=== PATIENT | male | born 1960 | race Caucasian/White ===

== ENCOUNTER 2022-05-09 12:08 | Inpatient (IN) ==
[2022-05-09] MEDS ORDERED: HYDROmorphone INJ 1 MG/ML SYRINGE IV STA ×2 (13:15→17:08)
[2022-05-09] MEDS ORDERED: ONDANSETRON INJ 2 MG/ML 2 ML VIAL IV STA (13:15)
--- NOTE | 2022-05-09 13:20 | Emergency Department Note ---
History of Present Illness General Chief complaint: Back Injury/Pain Stated complaint: PAIN AFTER BACK INJECTION Time Seen by Provider: 05/09/22 13:00 Source: patient Mode of arrival: ambulatory Limitations: no limitations History of Present Illness Maximum Pain Intensity: 9 This patient is a 62-year-old male who has ongoing back issues with herniated disc and is followed by Dr. Marrufo, comes in after having worsening of pain. He has seen Dr. Marrufo in the past and he opted to try to go nonoperatively. He has had 2 injections. He felt better after the first 1 but the second 1 he is gotten worse that this was about 2 weeks ago he cannot walk as he has severe pain when he tries to walk he cannot sleep because when he turns it hurts. No recent trauma he does have some numbness in his leg intermittently but that is been coming and going since before the injections. No fever chills he just completed a Medrol Dosepak and he is on tramadol which does not help. He has had no fever chills no fall. No history of back surgery. In the past, he wanted to try nonoperative methods first and now is willing to have surgery as he does not feel it is working and he is a hard time functioning at home. Home Medications Medication Instructions Recorded Confirmed Type methylprednisolone 4 mg tablets in 0 mg PO DAILY 05/09/22 05/09/22 History a dose pack rosuvastatin 10 mg tablet 10 mg PO DAILY 05/09/22 05/09/22 History tramadol 50 mg tablet 50 mg PO DIRECTED PRN Pain 05/09/22 05/09/22 History oxycodone 5 mg tablet 5 mg PO Q6H PRN pain, severe #30 05/11/22 Rx tabs tramadol 50 mg tablet 50 mg PO Q6H PRN pain, moderate 05/11/22 Rx #30 tabs Allergies Allergy/AdvReac Type Severity Reaction Status Date / Time atorvastatin [From Lipitor] AdvReac Intermediate MUSCLE Verified 05/09/22 16:41 CRAMPS Past Med/Surg History Social History Smoking Status: Current every day smoker Tobacco Type: Cigarettes Second Hand Exposure: No; Do You Dip or Chew Tobacco: No; Tobacco Cessation Education Requested by Patient: No Hx Alcohol Use: Yes Hx Substance Use: No Preferred Language: Frisian Communication Ability: Effective Media Planner / Buyer Required: No Beliefs That Will Affect Care: None Current Living Situation: Significant Other Other Information That Helps Us Care for You: No Feels Safe at Home: Yes Safety Concerns: Feels Safe At This Time Assistive Devices: None Immunizations: Past medical history, chronic back pain. No history of surgery to date. Denies diabetes, hypercholesteremia, cardiac disease, hypertension. He is on no blood thinners. AllergiesLipitor ShX-+smoker. Denies Review of Systems A total of 10 systems reviewed and were otherwise negative Physical Exam Vital Signs Vital Signs - 24 hr 05/09/22 12:11 05/09/22 13:37 05/09/22 13:39 Temperature 36.7 C Temperature Source Temporal Artery Scan Pulse Rate 84 85 Pulse Rate [Apical] 83 Pulse Rhythm Regular Regular Pulse Rhythm [Apical] Regular Pulse Strength Normal Pulse Strength [Apical] Normal Respiratory Rate 20 19 16 Respiratory Effort / Characteristics Non-Labored Spontaneous Non-Labored Respiratory Depth Normal Normal Respiratory Pattern Regular Regular Blood Pressure 153/89 H Blood Pressure [Right Arm] 162/108 H Blood Pressure Mean 110 Blood Pressure Mean [Right Arm] 126 Blood Pressure Position Sitting Blood Pressure Position [Right Arm] Pulse Oximetry 95 93 94 Oxygen Delivery Method Room Air Room Air Room Air Sepsis Recent Fever Within 48 Hours No Sepsis New/Unexplained Change in Mental Status No Sepsis Action Taken by Nursing No Action Required 05/09/22 17:00 Temperature Temperature Source Pulse Rate Pulse Rate [Apical] 83 Pulse Rhythm Pulse Rhythm [Apical] Regular Pulse Strength Pulse Strength [Apical] Normal Respiratory Rate 20 Respiratory Effort / Characteristics Non-Labored Respiratory Depth Normal Respiratory Pattern Regular Blood Pressure Blood Pressure [Right Arm] 154/90 H Blood Pressure Mean Blood Pressure Mean [Right Arm] 111 Blood Pressure Position Blood Pressure Position [Right Arm] Sitting Pulse Oximetry 93 Oxygen Delivery Method Sepsis Recent Fever Within 48 Hours Sepsis New/Unexplained Change in Mental Status Sepsis Action Taken by Nursing General: Well developed well nourished in no acute distress, breathing comfortably on room air. Normal speech HEENT: Normal cephalic atraumatic. Pupils are equal round and reactive to light. Extraocular movements are intact. Oropharynx is pink with moist mucous membranes. No swelling of the mouth lips or tongue. Neck: Supple with a midline trachea. No meningeal signs or stiffness, no JVD or bruits. No Stridor. Chest: Clear to auscultation bilaterally. No wheezes or rhonchi. No increased work of breathing. Heart: Regular rate and rhythm without murmurs or gallops. Abdomen: Soft nontender, nondistended without rebound guarding or rigidity. Extremities: No cyanosis clubbing or edema. No calf tenderness or assymetry Spine/Back. Moderately tender to palpation in the central lower lumbar area. No CVA tenderness. Normal sensation to light touch when sitting and intact Achilles and patellar reflexes. Normal motor. Skin: Good turgor without rashes. Neurologic exam: Cranial nerves two through 12 are intact. Motor and sensation are intact and symmetrical throughout. Course Administered Medications Acetaminophen (Acetaminophen 500 Mg Tab) 1,000 mg PO Q8H PRN PRN Reason: MILD Pain Scale 1,2,3 & Pre PT Stop: 06/09/22 16:11 Last Admin: 05/11/22 19:43 Dose: 1,000 mg Documented By: LINDA Hydromorphone HCl (Hydromorphone Inj 1 Mg/Ml Syringe) 1 mg IV Q3H PRN PRN Reason: SEVERE Pain (Scale 7,8,9,10) Stop: 05/24/22 16:11 Last Admin: 05/11/22 05:40 Dose: 1 mg Documented By: Admin: 05/11/22 00:42 Dose: 1 mg Documented By: MATTHEW Dexamethasone 6 mg/ Syringe 1.5 mls @ 1 mls/min IV DAILY [facility] Stop: 05/13/22 09:02 Last Admin: 05/11/22 07:26 Dose: 1 mls/min Documented By: ELYSSA Miscellaneous (Remove Nicoderm Patch) 1 each N/A DAILY@0859 [facility] Stop: 06/09/22 08:58 Last Admin: 05/11/22 07:25 Dose: Not Given Documented By: Admin: 05/10/22 07:48 Dose: Not Given Documented By: MARCEL Nicotine (Nicotine 21 Mg/24 Hr Tdsy) 21 mg TD QAM [facility] Stop: 06/08/22 18:44 Last Admin: 05/11/22 07:26 Dose: Not Given Documented By: Admin: 05/10/22 07:48 Dose: Not Given Documented By: Admin: 05/09/22 22:00 Dose: Not Given Documented By: EKF Oxycodone HCl (Oxycodone Hcl Ir 5 Mg Tab (Immediate Release)) 5 - 10 mg PO Q4H PRN PRN Reason: Pain & Pre PT Stop: 05/24/22 16:11 Last Admin: 05/11/22 20:47 Dose: 10 mg Documented By: Admin: 05/10/22 20:06 Dose: 5 mg Documented By: JAZMINEF Polyethylene Glycol (Polyethylene (Miralax) 17 Gm Pack) 17 gm PO Q6 [facility] Stop: 06/10/22 05:59 Last Admin: 05/11/22 16:11 Dose: 17 gm Documented By: Admin: 05/11/22 11:00 Dose: Not Given Documented By: Admin: 05/11/22 05:27 Dose: 17 gm Documented By: JAZMINEF Rosuvastatin Calcium (Rosuvastatin Calcium 10 Mg Tab) 10 mg PO DAILY [facility] Stop: 06/09/22 08:59 Last Admin: 05/11/22 07:26 Dose: 10 mg Documented By: Admin: 05/10/22 07:52 Dose: 10 mg Documented By: MARCEL Senna/Docusate Sodium (Docusate Sodium/Senna 50/8.6mg Tab) 2 tab PO HS [facility] Stop: 06/09/22 20:59 Last Admin: 05/11/22 20:47 Dose: Not Given Documented By: Admin: 05/10/22 20:06 Dose: 2 tab Documented By: EKF Discontinued Medications Albuterol (Albut/Ipratrop 3mg/0.5mg Neb 3 Ml Vial) 3 ml NEB NOW STA; Protocol Stop: 05/10/22 12:17 Last Admin: 05/10/22 12:23 Dose: 3 ml Documented By: Jairo Bupivacaine HCl/Epinephrine Bitart (Bupivacaine/Epinephrine 0.25% 1:200,000 30 Ml Vial) Confirm Administered Dose 30 ml .ROUTE .STK-MED ONE Stop: 05/10/22 12:45 Last Admin: 05/10/22 14:00 Dose: 23 ml Documented By: BIANCA Cefazolin Sodium (Cefazolin 330 Mg/Ml 1 Gm Vial) Confirm Administered Dose 990 mg .ROUTE .STK-MED ONE Stop: 05/10/22 12:45 Last Admin: 05/10/22 14:00 Dose: 990 mg Documented By: BIANCA Cefazolin Sodium (Cefazolin 2,000 Mg/15 Ml Iv Push) Confirm Administered Dose 2,000 mg IV .STK-MED ONE Stop: 05/10/22 13:14 Last Admin: 05/10/22 13:18 Dose: 2,000 mg Documented By: YOLANDA Dexamethasone Sodium Phosphate (DexamethasonePf 10 Mg/Ml Vial) 10 mg IV NOW ONE Stop: 05/09/22 13:24 Last Admin: 05/09/22 13:35 Dose: 10 mg Documented By: ELIZABETH Fentanyl Citrate (Fentanyl Citrate 100 Mcg/2 Ml Vial) 50 mcg IV Q5M PRN PRN Reason: PACU Use Only-Pain Stop: 05/10/22 20:17 Last Admin: 05/10/22 15:20 Dose: 50 mcg Documented By: Admin: 05/10/22 15:15 Dose: 50 mcg Documented By: JOSHUA Hydromorphone HCl (Hydromorphone Inj 1 Mg/Ml Syringe) 1 mg IV NOW STA Stop: 05/09/22 13:16 Last Admin: 05/09/22 13:31 Dose: 1 mg Documented By: ELIZABETH Hydromorphone HCl (Hydromorphone Inj 1 Mg/Ml Syringe) 1 mg IV NOW STA Stop: 05/09/22 17:09 Last Admin: 05/09/22 17:15 Dose: 1 mg Documented By: IVET Hydromorphone HCl (Hydromorphone Inj 0.5 Mg/0.5 Ml Syr) 0.5 mg IV Q3H PRN PRN Reason: Pain Stop: 05/23/22 21:49 Last Admin: 05/10/22 07:45 Dose: 0.5 mg Documented By: Admin: 05/09/22 22:16 Dose: 0.5 mg Documented By: MATTHEW Hydromorphone HCl (Hydromorphone Inj 2 Mg/Ml Syr/Vial) 0.5 mg IV Q5M PRN PRN Reason: PACU Use Only-Pain Stop: 05/10/22 20:17 Last Admin: 05/10/22 15:43 Dose: 0.5 mg Documented By: Admin: 05/10/22 15:38 Dose: 0.5 mg Documented By: Admin: 05/10/22 15:33 Dose: 0.5 mg Documented By: Admin: 05/10/22 15:25 Dose: 0.5 mg Documented By: JOSHUA Sodium Chloride (Nss 1000ml) 1,000 mls @ 80 mls/hr IV .[id number] [facility] Stop: 06/08/22 21:49 Last Infusion: 05/10/22 16:19 Dose: 0 mls/hr Documented By: Admin: 05/10/22 09:26 Dose: 80 mls/hr Documented By: Infusion: 05/10/22 09:26 Dose: 80 mls/hr Documented By: Admin: 05/09/22 22:01 Dose: 80 mls/hr Documented By: EKF Lactated Ringer's (Lr) 1,000 mls @ 100 mls/hr IV .Q10H [facility] Stop: 06/09/22 16:11 Last Infusion: 05/11/22 16:58 Dose: 0 mls/hr Documented By: Admin: 05/11/22 11:14 Dose: 100 mls/hr Documented By: Infusion: 05/11/22 11:13 Dose: 0 mls/hr Documented By: Admin: 05/11/22 02:23 Dose: 100 mls/hr Documented By: Infusion: 05/11/22 02:23 Dose: 100 mls/hr Documented By: Admin: 05/10/22 16:31 Dose: 100 mls/hr Documented By: MARCEL Cefazolin Sodium (Ancef 2000mg) 2,000 mg in 15 mls @ 3.75 mls/min IV Q8H [facility]; Protocol Stop: 05/11/22 05:33 Last Admin: 05/11/22 05:27 Dose: 3.75 mls/min Documented By: Admin: 05/10/22 21:05 Dose: 3.75 mls/min Documented By: EKF Lorazepam (Lorazepam 1 Mg/1 Ml Syr) 1 mg IV NOW STA; Protocol Stop: 05/09/22 14:41 Last Admin: 05/09/22 16:57 Dose: 1 mg Documented By: LEYLA Lorazepam (Lorazepam 1 Mg/1 Ml Syr) Confirm Administered Dose 1 mg .ROUTE .STK- MED ONE Stop: 05/09/22 16:56 Last Admin: 05/09/22 16:57 Dose: Not Given Documented By: MNE Miscellaneous ( Floseal Hemostatic Matrix 10ml) 10 ml TOP ONCE ONE Stop: 05/10/22 14:02 Last Admin: 05/10/22 14:48 Dose: 13 ml Documented By: BIANCA Ondansetron HCl (Ondansetron Inj 2 Mg/Ml 2 Ml Vial) 4 mg IV NOW STA Stop: 05/09/22 13:16 Last Admin: 05/09/22 13:31 Dose: 4 mg Documented By: RSL Medical Decision Making Differential Diagnosis Lumbar disc disease, spinal stenosis, cauda equina, infection Medical Records Attestation: I reviewed the patient's medical records. Home Medications Current Medication List: was personally reviewed by me Laboratory Data Attestation: I reviewed the patient's lab results. Result diagrams: 05/11/22 08:16 05/11/22 08:16 Lab Results 05/09/22 05/09/22 05/09/22 Range/Units 13:32 13:32 19:05 WBC 14.06 H (4.8-10.8) K/ul RBC 4.94 (4.63-6.08) M/uL Hgb 15.4 (14.0-18.0) g/dl Hct 44.8 (40.1-51.0) % MCV 90.7 (80.0-100.0) fL MCH 31.2 (25.0-34.0) pg MCHC 34.4 (32.0-36.0) g/dL RDW Std Deviation 46.2 (36.4-46.3) fL RDW Coeff of Pavel 13.9 (11.5-14.5) % Plt Count 326 (130-400) K/uL MPV 9.1 L (9.4-12.4) fL Immature Gran % (Auto) 0.9 % Neut % (Auto) 59.4 % Lymph % (Auto) 31.4 % Nobles % (Auto) 6.6 % Eos % (Auto) 1.3 % Baso % (Auto) 0.4 % Neut # (Auto) 8.35 H (1.4-6.5) K/uL Lymph # (Auto) 4.42 H (1.2-3.4) K/uL Nobles # (Auto) 0.93 H (0.24-0.82) K/uL Eos # (Auto) 0.18 (0-0.50) K/uL Baso # (Auto) 0.05 (0-0.2) K/uL Immature Gran # (Auto) 0.13 H (0.00-0.02) K/uL Sodium 139 (136-145) mmol/L Potassium 3.7 (3.5-5.1) mmol/L Chloride 105 (98-107) mmol/L Carbon Dioxide 28 (21-32) mmol/L Anion Gap 6 (3-11) BUN 16 (6-23) mg/dl Creatinine 0.87 (0.6-1.4) mg/dl Est Cr Clr Drug Dosing Not Reportable Est GFR ( Amer) 107.2 ml/min Est GFR (Non-Af Amer) 92.5 ml/min BUN/Creatinine Ratio 18.4 (10-20) Glucose 84 (70-99(Fasting)) mg/dl Calcium 9.1 (8.5-10.1) mg/dl Total Bilirubin 0.3 (0.2-1.0) mg/dl AST 15 (13-39) U/L ALT 35 (7-52) U/L Alkaline Phosphatase 83 (34-104) U/L Total Protein 7.1 (6.0-8.3) gm/dl Albumin 4.1 (3.4-5.0) gm/dl Globulin 3.0 (2.5-4.0) gm/dl Albumin/Globulin Ratio 1.4 (0.9-2) SARS-CoV-2, RNA, NAAT NEGATIVE (NEGATIVE) Imaging Data Radiologist's Impression: Lumbar Spine MRI 05/09/22 13:22 MR lumbar spine wo con CLINICAL HISTORY: 62 years-old Male with worsening back pain. Chronic low back pain with radiation into the right lower extremity COMPARISON: 02/10/2022 TECHNIQUE: Multiplanar, multi sequence MRI of the lumbar spine was performed without intravenous contrast. FINDINGS: Mildly motion degraded exam. 2 cm S2 Tarlov cyst. Mild Modic type I endplate degeneration at L4-L5. Conus medullaris terminates at L1. Signal within the imaged thoracic spinal cord is unremarkable. The paraspinal and imaged intra- abdominal structures appear unremarkable. The study is motion degraded. No acute fracture, subluxation or endplate erosion. Moderate multilevel intervertebral disc space narrowing with bridging spondylitic spurring and facet arthrosis of the thoracic spine. Distended urinary bladder. T12-L1: Moderate intervertebral disc space narrowing with spondylitic spurring, posterior annular disc bulge and moderate facet arthrosis. The central canal is patent. Mild to moderate left with mild right neural foraminal narrowing. Unchanged. L1-L2: Moderate intervertebral disc space narrowing with spondylitic spurring and moderate facet arthrosis. 1.4 cm right foraminal Tarlov cyst. No significant central canal or neural foraminal narrowing. L2-L3: Moderate to severe intervertebral disc space narrowing with spondylitic spurring, small posterior disc osteophyte complex with ligamentum flavum thickening and moderate facet arthrosis. No central canal or neural foraminal narrowing. Unchanged. L3-L4: Moderate intervertebral disc space narrowing with spondylitic spurring, small circumferential annular disc bulge with ligamentum flavum thickening and moderate facet arthrosis. There is mild flattening of the ventral thecal sac without significant central canal stenosis, improved from prior. Moderate right with severe left neural foraminal narrowing is unchanged. L4-L5: Severe intervertebral disc space narrowing with spondylitic spurring and circumferential annular disc bulge. Right foraminal disc protrusion measures 10 mm transversely. This has increased in size from the prior study. Ligamentum flavum thickening with severe facet arthrosis. Moderate to severe central canal stenosis, AP dimension of the thecal sac measuring 6 mm, previously 7 mm. There is at least moderate narrowing of the lateral recesses. Moderate to severe left with severe right neural foraminal narrowing, progressed from prior. L5-S1: Moderate intervertebral disc space narrowing with spondylitic spurring and circumferential annular disc bulge with severe facet arthrosis and ligamentum flavum thickening. The central canal is patent. Unchanged moderate right with moderate to severe left neural foraminal narrowing. IMPRESSION: 1. Motion degraded exam. 2. 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 3. Right foraminal disc protrusion at L4-L5 has increased in size from the prior study resulting in severe right foraminal narrowing. 4. Moderate to severe L4-L5 central canal stenosis. 5. No acute fracture. ACT 112: Negative or not required by law. The above report was generated using voice recognition software. It may contain grammatical, syntax or spelling errors. Electronically signed by: Ede Schreiber M.D. 05/09/2022 5:53 PM MDM Narrative This patient comes in as described above. He was placed in room C10. He is here for treatment and evaluation of ongoing back pain is gotten worse. He has no definite neurologic deficits compared to old. I did talk to Dr. Marrufo wanted me to order an MRI. The MRI did come back and it looks worse than before. There is increased foraminal narrowing with severe narrowing at L4-5 likely causing his symptoms. The patient has no fever or white count to suggest infectionand has no significant electrolyte or metabolic abnormalities. While he was here in the ER, he did receive 2 doses of IV Dilaudid and was resting more comfortably he did receive Decadron 10 mg IV as well and additionally received Ativan 1 mg IV for anxiolysis so he could have the MRI which he tolerated well. I did discuss this further with Dr. Marrufo who does want the patient admitted to the medicine team and kept n.p.o. after midnight and he will see him in the morning. Impression & Plan Lumbar radiculopathy, Intractable back pain, Ambulatory dysfunction, Lab test negative for COVID-19 virus Discharge Plan Visit Data Chief Complaint: Back Injury/Pain Stated Complaint: PAIN AFTER BACK INJECTION ED Provider: Dixon Hagen Discharge Problem: Lumbar radiculopathy, Intractable back pain, Ambulatory dysfunction, Lab test negative for COVID-19 virus Patient Disposition: Admitted As Inpatient Discharge Instructions Interventions: ED Discharge Assessment Last Done: 05/09/22 21:26
[2022-05-09] MEDS ORDERED: dexAMETHasone**PF** 10 MG/ML VIAL IV ONE (13:23)
[2022-05-09 13:42] LABS: Basophils # (auto) 0.05 K/uL (0-0.2); Basophils % (auto) 0.4 %; Eosinophils # (auto) 0.18 K/uL (0-0.50); Eosinophils % (auto) 1.3 %; Hematocrit (blood only) 44.8 % (40.1-51.0); Hemoglobin 15.4 g/dl (14.0-18.0); Immature Granulocytes # (auto) 0.13 K/uL (0.00-0.02); Immature Granulocytes % (auto) 0.9 %; Lymphocytes # (auto) 4.42 K/uL (1.2-3.4); Lymphocytes % (auto) 31.4 %; Mean Corpuscular Hemoglobin 31.2 pg (25.0-34.0); Mean Corpuscular Hgb Conc 34.4 g/dL (32.0-36.0); Mean Corpuscular Volume 90.7 fL (80.0-100.0); Mean Platelet Volume 9.1 fL (9.4-12.4); Monocytes # (auto) 0.93 K/uL (0.24-0.82); Monocytes % (auto) 6.6 %; Neutrophils # (auto) 8.35 K/uL (1.4-6.5); Neutrophils % (auto) 59.4 %; Platelet Count 326 K/uL (130-400); RDW Coefficient of Variation 13.9 % (11.5-14.5); RDW Standard Deviation 46.2 fL (36.4-46.3); Red Blood Count 4.94 M/uL (4.63-6.08); White Blood Count 14.06 K/ul (4.8-10.8)
[2022-05-09 14:11] LABS: Carbon Dioxide 28 mmol/L (21-32); Chloride 105 mmol/L (98-107); Potassium 3.7 mmol/L (3.5-5.1); Sodium 139 mmol/L (136-145)
[2022-05-09 14:12] LABS: Alanine Aminotransferase 35 U/L (7-52); Albumin Globulin Ratio 1.4 (0.9-2); Albumin Level 4.1 gm/dl (3.4-5.0); Alkaline Phosphatase 83 U/L (34-104); Anion Gap 6 (3-11); Aspartate Aminotransferase 15 U/L (13-39); BUN Creatinine Ratio 18.4 (10-20); Bilirubin,Total 0.3 mg/dl (0.2-1.0); Blood Urea Nitrogen 16 mg/dl (6-23); Calcium 9.1 mg/dl (8.5-10.1); Est GFR (African American) 107.2 ml/min; Est GFR (Non-African American) 92.5 ml/min; Glucose 84 mg/dl (70-99(Fasting)); Total Protein 7.1 gm/dl (6.0-8.3)
[2022-05-09] MEDS ORDERED: LORazepam 2 MG/1 ML VIAL IV STA (14:40)
[2022-05-09] MEDS ORDERED: LORazepam 2 MG/1 ML VIAL ONE (16:55)
--- NOTE | 2022-05-09 17:56 | Magnetic Resonance Report ---
MR lumbar spine wo con CLINICAL HISTORY: 62 years-old Male with worsening back pain. Chronic low back pain with radiation i nto the right lower extremity COMPARISON: 02/10/2022 TECHNIQUE: Multiplanar, multi sequence MRI of the lumbar spine was performed without intravenous cont rast. FINDINGS: Mildly motion degraded exam. 2 cm S2 Tarlov cyst. Mild Modic type I endplate degeneration at L4-L5. C onus medullaris terminates at L1. Signal within the imaged thoracic spinal cord is unremarkable. The paraspinal and imaged intra-abdominal structures appear unremarkable. The study is motion degraded. N o acute fracture, subluxation or endplate erosion. Moderate multilevel intervertebral disc space narr owing with bridging spondylitic spurring and facet arthrosis of the thoracic spine. Distended urinary bladder. T12-L1: Moderate intervertebral disc space narrowing with spondylitic spurring, posterior annular di sc bulge and moderate facet arthrosis. The central canal is patent. Mild to moderate left with mild r ight neural foraminal narrowing. Unchanged. L1-L2: Moderate intervertebral disc space narrowing with spondylitic spurring and moderate facet art hrosis. 1.4 cm right foraminal Tarlov cyst. No significant central canal or neural foraminal narrowin g. L2-L3: Moderate to severe intervertebral disc space narrowing with spondylitic spurring, small poste rior disc osteophyte complex with ligamentum flavum thickening and moderate facet arthrosis. No centr al canal or neural foraminal narrowing. Unchanged. L3-L4: Moderate intervertebral disc space narrowing with spondylitic spurring, small circumferential annular disc bulge with ligamentum flavum thickening and moderate facet arthrosis. There is mild fla ttening of the ventral thecal sac without significant central canal stenosis, improved from prior. Mo derate right with severe left neural foraminal narrowing is unchanged. L4-L5: Severe intervertebral disc space narrowing with spondylitic spurring and circumferential robb lar disc bulge. Right foraminal disc protrusion measures 10 mm transversely. This has increased in si ze from the prior study. Ligamentum flavum thickening with severe facet arthrosis. Moderate to severe central canal stenosis, AP dimension of the thecal sac measuring 6 mm, previously 7 mm. There is at least moderate narrowing of the lateral recesses. Moderate to severe left with severe right neural fo raminal narrowing, progressed from prior. L5-S1: Moderate intervertebral disc space narrowing with spondylitic spurring and circumferential an nular disc bulge with severe facet arthrosis and ligamentum flavum thickening. The central canal is p atent. Unchanged moderate right with moderate to severe left neural foraminal narrowing. IMPRESSION: 1. Motion degraded exam. 2. 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 3. Right foraminal disc protrusion at L4-L5 has increased in size from the prior study resulting in s evere right foraminal narrowing. 4. Moderate to severe L4-L5 central canal stenosis. 5. No acute fracture. ACT 112: Negative or not required by law. The above report was generated using voice recognition software. It may contain grammatical, syntax o r spelling errors. Electronically signed by: Ede Schreiber M.D. 05/09/2022 5:53 PM
[2022-05-09] MEDS ORDERED: ACETAMINOPHEN 325 MG TAB PO PRN (21:50)
[2022-05-09] MEDS ORDERED: POLYETHYLENE (MIRALAX) 17 GM PACK PO PRN (21:50)
[2022-05-09] MEDS: NICOTINE 21 MG/24 HR TDSY TD SCH (22:00)
[2022-05-09] MEDS: SODIUM CHLORIDE 0.9% 1000ML 1,000 ML IV SCH (22:01)
--- NOTE | 2022-05-09 22:09 | History and Physical Report ---
DATE OF ADMISSION: 05/09/2022. CHIEF COMPLAINT: Severe back pain. HISTORY OF PRESENT ILLNESS: This is a 62-year-old male with past medical history significant for hyperlipidemia, prediabetes, hemorrhoids, diverticulosis, tobacco abuse, presents with severe back pain. The patient says his back pain is going for last 4 months. He had a couple of steroid shots, did not help. It is getting progressively worse. He is also feeling numbness in the right foot .When he is lying down, it is okay, but when he is ambulating, severe pain in the back and shooting down the right leg and is having ambulatory dysfunction. No incontinence of bowel or bladder movements. No fevers, no abdominal pain, no nausea, no vomiting. No blood in stools or black stools. No hematuria. No chest pain, no shortness of breath. He has chronic smoker's cough. No headache. Had mild neck pain earlier that is gone. No blurred visions, no double visions, no earache, no runny nose, no sore throat. Appetite is okay. No difficulty swallowing. Currently, resting comfortably and hemodynamically stable. He states after receiving the pain medication in the ER, his pain is somewhat under control now. ALLERGIES: LIPITOR. PAST MEDICAL HISTORY: As mentioned above. PAST SURGICAL HISTORY: Colonoscopy, lumbosacral spinal injections. MEDICATIONS: The patient is on rosuvastatin 10 mg p.o. daily, tramadol 50 mg p.o. p.r.n. FAMILY HISTORY: Significant for father had melanoma; mother had cirrhosis. SOCIAL HISTORY: Smokes 1 pack a day for 30 years. Alcohol occasional. No drug use. REVIEW OF SYSTEMS: As per HPI. Rest of the review of systems is negative. PHYSICAL EXAMINATION: GENERAL: The patient is of moderate build, not in acute distress. VITAL SIGNS: Temperature 36.7, pulse 83, respiratory rate 20, blood pressure 154/90, oxygen 93% on room air. HEENT: Pupils equal, round and reactive to light. Oral mucosa moist. NECK: No JVD, no neck masses. CARDIOVASCULAR: S1 and S2 heard. Regular rate and rhythm. No murmur, no gallop. RESPIRATORY SYSTEM: Normal AP diameter. No accessory muscle use. No wheezing, no crackles. ABDOMEN: Soft, bowel sounds present, nontender, no distention. CENTRAL NERVOUS SYSTEM: Cranial nerves II through XII grossly intact, nonfocal. EXTREMITIES: No edema, no erythema. MUSCULOSKELETAL: Straight leg test positive in right lower extremity. LABORATORY DATA: WBC 14, hemoglobin 15.4, hematocrit 44.8, platelets 326. Sodium 139, potassium 3.7, chloride 105, bicarbonate 28, BUN 16, creatinine 0.8, serum glucose 84, calcium 9.1, total bilirubin 0.3, AST 15, ALT 34, alkaline phosphatase 83, SARS-CoV-2 rapid test negative. IMAGING DATA: Lumbar spine MRI, discogenic degeneration of the spondylitis and facet arthrosis. Right foraminal disk protrusion at L4-L5, has increased in size from prior study, resulting in severe right foraminal narrowing, [id number] L4-L5 central canal stenosis. No acute fracture. ASSESSMENT AND PLAN: This is a 62-year-old male who presents with severe back pain and ambulatory dysfunction. 1. Severe back pain radiating to the right lower extremity, ambulatory dysfunction. MRI scan showing [id number] L4-L5 central canal stenosis, disk protrusion at L4-L5, increased in size from prior study, resulting in severe right foraminal narrowing. He had steroid shot that is not helping much. Admit to medical floor. Pain control with IV Dilaudid p.r.n., gentle IV fluids, n.p.o. from midnight. Ortho consult in a.m. We will get chest x-ray and EKG. If they are okay, the patient shoiuld be at acceptable risk to proceed with any procedures. 2. Hyperlipidemia: Continue statin. 3. Prediabetes: Follow HbA1c levels. Follow the blood sugars. 4. Deep venous thrombosis prophylaxis: SCDs for now. DISPOSITION: Closely monitor in the medical floor. PT/OT prior to discharge. Social service to help with discharge planning. Level 1 full code. Job ID: [id number] [facility]
[2022-05-09] MEDS: HYDROmorphone INJ 0.5 MG/0.5 ML SYR IV PRN (22:16)
[2022-05-10 06:29] LABS: Basophils # (auto) 0.02 K/uL (0-0.2); Basophils % (auto) 0.1 %; Eosinophils # (auto) 0.01 K/uL (0-0.50); Eosinophils % (auto) 0.1 %; Hematocrit (blood only) 41.8 % (40.1-51.0); Hemoglobin 14.1 g/dl (14.0-18.0); Immature Granulocytes # (auto) 0.11 K/uL (0.00-0.02); Immature Granulocytes % (auto) 0.7 %; Lymphocytes # (auto) 1.96 K/uL (1.2-3.4); Lymphocytes % (auto) 13.2 %; Mean Corpuscular Hemoglobin 30.9 pg (25.0-34.0); Mean Corpuscular Hgb Conc 33.7 g/dL (32.0-36.0); Mean Corpuscular Volume 91.5 fL (80.0-100.0); Mean Platelet Volume 9.2 fL (9.4-12.4); Monocytes # (auto) 0.69 K/uL (0.24-0.82); Monocytes % (auto) 4.6 %; Neutrophils # (auto) 12.11 K/uL (1.4-6.5); Neutrophils % (auto) 81.3 %; Platelet Count 292 K/uL (130-400); RDW Coefficient of Variation 13.8 % (11.5-14.5); RDW Standard Deviation 46.5 fL (36.4-46.3); Red Blood Count 4.57 M/uL (4.63-6.08)
[2022-05-10 06:32] LABS: Appearance Urine Clear (Clear); Bilirubin Urine Negative (Negative); Blood Urine Negative (Negative); Color Urine Yellow; Glucose Urine UA Trace (Negative); Ketones Urine Negative (Negative); Leukocyte Esterase Urine Negative (Negative); Nitrite Urine Negative (Negative); Protein Urine Negative (Negative); Specific Gravity Urine 1.019 (1.000-1.030); Urobilinogen Urine Negative (Negative); pH Urine 6.5 (4.5-7.5)
[2022-05-10 06:44] LABS: Partial Thromboplastin Ratio 0.9; Partial Thromboplastin Time 25.5 Seconds (21.0-31.0); Prothrombin Time 10.9 Seconds (9.0-12.0)
[2022-05-10 07:10] LABS: Calcium 8.6 mg/dl (8.5-10.1); Creatinine Clr Calc Pharmacy 92.9 ml/min; Est GFR (African American) 108.8 ml/min; Est GFR (Non-African American) 93.8 ml/min; Magnesium 2.1 mg/dl (1.7-2.4); Potassium 4.2 mmol/L (3.5-5.1)
[2022-05-10 07:19] LABS: Estimated Average Glucose 128 mg/dl; Hemoglobin A1C 6.1 % (4.5-5.6)
[2022-05-10] MEDS: HYDROmorphone INJ 0.5 MG/0.5 ML SYR IV PRN ×2 (07:45→15:25)
[2022-05-10] MEDS: NICOTINE 21 MG/24 HR TDSY TD SCH (07:48)
[2022-05-10] MEDS: ROSUVASTATIN CALCIUM 10 MG TAB PO SCH (07:52)
[2022-05-10] MEDS: SODIUM CHLORIDE 0.9% 1000ML 1,000 ML IV SCH (09:26)
--- NOTE | 2022-05-10 10:30 | Orthopedic Consultation ---
Date of Consultation May 10, 2022 Assessment & Plan (1) Lumbar disc herniation with radiculopathy: Assessment lumbar spinal stenosis with foraminal disc condition. Plan at this time at length discussion today with patient reviewing his updated MRI imaging and possible treatment plan. He has pre-existing lumbar spinal stenosis which was responsive to the epidurals but with his overlying foraminal disc herniation at L4-5 on the right he is now in significant distress. Surgery would require complete facetectomy to both address the stenosis as well as the foraminal disc herniation. This would create iatrogenic instability subsequently require fusion. Subsequently we will plan for a lumbar decompression fusion L4-L5. Risk benefits pros cons alternatives were in detail. Risk include but not limited to anesthesia spinal stroke process nerve damage blood sugar transfusion infection requiring reoperation patient with a marked improvement of his radiculopathy. This time we will plan for surgery today. History of Present Illness Reason for Consultation: Right leg pain Attending Physician: Marion Cotton MD History of Present Illness This is a 60-year-old male that has a marked gland status over the past several months. Most recently has been unable to ambulate secondary to severe right buttock and leg pain. He did respond to some injections earlier this summer but they are no longer effective in fact they have worsened his symptom complex. Describes pain right involving the right buttock Down the posterior thigh into the ankle. He can only lean forward when he stands up. He is unable to weight-bear. Left lower extremities asymptomatic. He does have breakaway weakness when ambulating. Allergies Allergy/AdvReac Type Severity Reaction Status Date / Time atorvastatin [From Lipitor] AdvReac Intermediate MUSCLE Verified 05/09/22 16:41 CRAMPS Home Medications Medication Instructions Recorded Confirmed Type methylprednisolone 4 mg tablets in 0 mg PO DAILY 05/09/22 05/09/22 History a dose pack rosuvastatin 10 mg tablet 10 mg PO DAILY 05/09/22 05/09/22 History tramadol 50 mg tablet 50 mg PO DIRECTED PRN Pain 05/09/22 05/09/22 History Patient History Social History Smoking Status: Current every day smoker Tobacco Type: Cigarettes Second Hand Exposure: No; Do You Dip or Chew Tobacco: No; Tobacco Cessation Education Requested by Patient: No Hx Alcohol Use: Yes Hx Substance Use: No Preferred Language: Thai Communication Ability: Effective Credit Control Administrator Required: No Beliefs That Will Affect Care: None Current Living Situation: Significant Other Other Information That Helps Us Care for You: No Feels Safe at Home: Yes Safety Concerns: Feels Safe At This Time Assistive Devices: None Physical Exam Physical Exam: Patient is in bed. He has severe tension signs straight leg raising on the right negative on the left. He has a 4/5 right dorsiflexion compared to 5 5 on the left. Quadriceps appear to be symmetric. There is marked decrease in sensation in the right lower extremity compared to the left. Results & Data ([facility]) Vital Signs (Past 12 Hours) Vital Signs Temp Pulse Resp BP Pulse Ox O2 Del Method 05/10/22 07:54 36.6 C 65 17 166/95 H 94 Room Air
[2022-05-10] MEDS ORDERED: LIDOCAINE 2% MPF LOCAL 5 ML VIAL INFIL ONE (11:43)
[2022-05-10] MEDS ORDERED: fentaNYL citrate 100 MCG/2 ML VIAL ONE ×2 (11:43→13:52)
[2022-05-10] MEDS ORDERED: MIDAZOLAM HCL 1 MG/ML 2ML VIAL ONE (11:43)
[2022-05-10] MEDS ORDERED: PROPOFOL IV EMULSION 10 MG/ML 20 ML VIAL IV ONE (11:43)
[2022-05-10] MEDS ORDERED: ROCURONIUM BROMIDE 10 MG/ML 5 ML VIAL IV ONE ×6 (11:43→14:23)
[2022-05-10] MEDS ORDERED: ALBUT/IPRATROP 3MG/0.5MG NEB 3 ML VIAL NEB STA (12:16)
[2022-05-10] MEDS ORDERED: ATROPINE SULFATE 0.1 MG/ML 10ML SYR IV PRN (12:17)
[2022-05-10] MEDS ORDERED: ePHEDrine sulfate 50 MG/ML AMP IV PRN (12:17)
[2022-05-10] MEDS ORDERED: ONDANSETRON INJ 2 MG/ML 2 ML VIAL IV PRN ×2 (12:17→16:12)
--- NOTE | 2022-05-10 12:19 | Anesthesiology Consultation ---
Date of Service May 10, 2022 Assessment & Plan ASA ASA2 Proposed Anesthesia Anesthesia Type: General Risk / Benefits Reviewed With: PT / POA / Parent / Guardian, Accepts Plan and Informed Consent Obtained Additional Comments: ordered duoneb History Surgery Operation Date: 05/10/22 11:25 Proposed Procedures p L4-L5 Lumbar Decompression and Fusion - Sylvain Marrufo, DO Height/Weight Height: 5 ft 7 in Weight: 81 kg Allergies Allergy/AdvReac Type Severity Reaction Status Date / Time atorvastatin [From Lipitor] AdvReac Intermediate MUSCLE Verified 05/09/22 16:41 CRAMPS Medications Home Medications Medication Instructions Recorded Confirmed Last Taken methylprednisolone 4 mg tablets in 0 mg PO DAILY 05/09/22 05/09/22 05/09/22 a dose pack rosuvastatin 10 mg tablet 10 mg PO DAILY 05/09/22 05/09/22 05/09/22 tramadol 50 mg tablet 50 mg PO DIRECTED PRN Pain 05/09/22 05/09/22 Unknown Active Medications Generic Name Dose Route Start Last Admin Trade Name Freq PRN Reason Stop Dose Admin Hydromorphone HCl 0.5 mg 05/09/22 21:50 05/10/22 07:45 Hydromorphone Inj 0.5 Mg/0.5 Ml Syr IV 05/23/22 21:49 0.5 mg Q3H PRN Administration Pain Sodium Chloride 1,000 mls @ 80 mls/hr 05/09/22 21:50 05/10/22 09:26 Nss 1000ml IV 06/08/22 21:49 80 mls/hr .[id number] DELGADO Administration Miscellaneous 1 each 05/10/22 08:59 05/10/22 07:48 Remove Nicoderm Patch N/A 06/09/22 08:58 Not Given [id number] DELGADO Nicotine 21 mg 05/09/22 18:45 05/10/22 07:48 Nicotine 21 Mg/24 Hr Tdsy TD 06/08/22 18:44 Not Given QAM DELGADO Rosuvastatin Calcium 10 mg 05/10/22 09:00 05/10/22 07:52 Rosuvastatin Calcium 10 Mg Tab PO 06/09/22 08:59 10 mg DAILY DELGADO Administration NPO Date Last Intake of Fluids: 05/09/22 Time Last Intake of Fluids: 19:00 Date Last Intake of Solids: 05/09/22 Time Last Intake of Solids: 19:00 Exercise / Class Metabolic Activity II 4-5 Yardwork/Stairs/Walk up hill Past Anesthesia History No Hx of Anesthesia Complications and No Family Hx of Anesthesia Complications History of PONV No Hx of PONV and No Hx of Motion Sickness Social History Smoking Status: Current every day smoker tobacco type: cigarettes Do You Dip or Chew Tobacco: No Hx Alcohol Use: Yes alcohol intake frequency: holidays/special occasions only Hx Substance Use: No substance use type: does not use Review of Systems denies fever/cough/ colds/ chest pain/ SOB/ CARMEL denies CARMEL Physical Exam Vital Signs Last Vital Signs Temp 36.8 C 05/10/22 11:18 Pulse 18 L 05/10/22 11:18 Resp 18 05/10/22 11:18 BP 146/87 H 05/10/22 11:18 Pulse Ox 96 05/10/22 11:18 O2 Del Method 05/10/22 11:18 ENMT Mouth: + dentures; no TMJ abnormality and no dentition abnormality Thyromental Distance: > or= 3.5 Finger Breadths Mallampati Class: II Neck neck extension not limited Respiratory normal respiratory effort; no respiratory distress Auscultation: + wheezes Cardiovascular Rate/Rhythm: regular rate and regular rhythm Neurologic moves all extremities Psychiatric Orientation: alert and oriented x 3 Testing Laboratory Results 05/10/22 06:08 05/10/22 06:08 PT 10.9 Seconds (9.0-12.0) 05/10/22 06:08 INR 1.0 (0.9-1.1) 05/10/22 06:08 APTT 25.5 Seconds (21.0-31.0) 05/10/22 06:08 Hemoglobin A1c 6.1 % (4.5-5.6) H 05/10/22 06:08 Urine Color Yellow 05/10/22 06:15 Urine Appearance Clear (Clear) 05/10/22 06:15 Urine pH 6.5 (4.5-7.5) 05/10/22 06:15 Ur Specific [place] 1.019 (1.000-1.030) 05/10/22 06:15 Urine Protein Negative (Negative) 05/10/22 06:15 Urine Glucose (UA) Trace (Negative) H 05/10/22 06:15 Urine Ketones Negative (Negative) 05/10/22 06:15 Urine Nitrite Negative (Negative) 05/10/22 06:15 Ur Leukocyte Esterase Negative (Negative) 05/10/22 06:15
--- NOTE | 2022-05-10 12:33 | History & Physical Bridge Note ---
Date of Service May 10, 2022 History & Physical Bridge Note I have examined the patient, reviewed the History & Physical and in the interval since the performance of the History & Physical I have noted the following changes of clinical significance: no changes noted Lumbar decompression and fusion of L4-L5
[2022-05-10] MEDS ORDERED: ceFAZolin 330 MG/ML 1 GM VIAL ONE (12:44)
[2022-05-10] MEDS ORDERED: BUPIVACAINE/EPINEPHRINE 0.25% 1:200,000 30 ML VIAL ONE (12:44)
[2022-05-10] MEDS ORDERED: ceFAZolin 2,000 MG/15 ML IV PUSH IV ONE (13:13)
[2022-05-10] MEDS ORDERED: FLOSEAL HEMOSTATIC MATRIX 10ML TOP ONE (14:01)
[2022-05-10] MEDS ORDERED: PHENYLEPHRINE HCL 10 MG/ML VIAL ONE (14:07)
[2022-05-10] MEDS ORDERED: SODIUM CHLORIDE 0.9% INJ 10 ML VIAL ONE (14:07)
[2022-05-10] MEDS ORDERED: SUGAMMADEX SODIUM 200 MG/2 ML VIAL IV ONE (14:26)
--- NOTE | 2022-05-10 15:01 | Fluoroscopy Report ---
FL lumbar spine 2-3V HISTORY: 62 years-old Male L4-L5 DECOMPRESSION AND FUSION POSSIBLE INTERBODY COMPARISON: Lumbar spine MRI 05/09/2022 TECHNIQUE: 2 spot fluoroscopic images of the lumbar spine were obtained utilizing 24.8 seconds fluoro scopy time FINDINGS: Posterior interbody giovanna and screw fusion with discectomy at L4-L5. The hardware appears intact. Multi level spondylitic spurring with intervertebral disc space narrowing. IMPRESSION: Fluoroscopic assistance as above. ACT 112: Negative or not required by law. The above report was generated using voice recognition software. It may contain grammatical, syntax o r spelling errors. Electronically signed by: Ede Schreiber M.D. 05/10/2022 2:59 PM
--- NOTE | 2022-05-10 15:05 | Operative Report ---
Post Operative Report Pre & Post Diagnosis Operation Date: 05/10/22 11:25 Pre-Op Diagnosis: Lumbar disc herniation with radiculopathy Post-Op Diagnosis: Lumbar disc herniation with radiculopathy I identified the patient and participated in the time-out.: Yes Procedure Operation Date: 05/10/22 11:25 Actual Procedures #1 lumbar decompression with bilateral medial facetectomies and foraminotomies as well as excision of herniated free fragment L3-L4 L4-L5. #2 posterior spinal fusion L4-L5. #3 placement posterior instrumentation L4-5 per #4 interbody fus ion L4-5. #5 placement of Spira 14 x 26 mm cage at L4-5 #6 placement locally harvested morselized autograft in the posterior gutters. #7 placement of I factor combined with V toss interbody space and posterior gutters. Surgeon Sylvain Marrufo, Compliance Quality Performance Analyst None Estimated Blood Loss 50 Findings Consistent with Post-Op Diagnosis Specimens None Indications This is a 62 old male presents with severe radiculopathy and inability to ambulate subsequent here for urgent decompression fusion Description of Procedure Patient is met with identified informed consent obtained. Patient was then taken to the operative suite underwent a patient placed in a prone position the Alliance table top Yong frame. All bony prominences well-padded eyes inspected to ensure no external pressure placed upon the. This point the lumbar spine was prepped and draped in normal sterile fashion. Sharp dissection with the assistance of Bovie cautery was formed down to and exposing the lamina transverse processes of L4-L5. From caudal cephalad fashion complete laminectomy L4 partial laminectomy of L3 was performed including medial facetectomies and foraminotomies addressing stenosis as well as complete facetectomy L4-5 on the right to expose far lateral foraminal disc herniation was also addressed and removed in its entirety. Pedicle screws were placed in L for L5 bilaterally with assistance of fluoroscopy the proper sized giovanna placed. By way of transforaminal approach on the right a complete discectomy of L4-L5 was performed endplates curetted to subcortically bone and a 14 x 26 mm Spira cage filled I factor tapped in position. Rods were then locked in final position bilaterally. The transverse processes of L for L5 burred to subcortically bone. I factor model V toss and locally harvested morselized autograft was placed in the posterior gutters. 15 round BETHEL drain inserted. Incision was then closed with 1 Vicryl fascia 2-0 Vicryl subcutaneously and 4 Monocryl for final skin closure. Steri-Strips dressings placed. Patient waken taken to PACU stable condition. I attest to the content of the Intraoperative Record and any orders documented therein. Any exceptions are noted below.
[2022-05-10] MEDS: fentaNYL citrate 100 MCG/2 ML VIAL IV PRN ×2 (15:15→15:20)
[2022-05-10] MEDS: HYDROmorphone INJ 2 MG/ML SYR/VIAL IV PRN ×4 (15:25→15:43)
--- NOTE | 2022-05-10 15:59 | Anesthesiology Progress Note ---
Date of Service May 10, 2022 Anesthesia Post Procedure Vital Signs Vital Signs: Temp Pulse Pulse Resp BP BP Pulse Ox 05/10/22 15:50 36.4 C L 82 16 134/86 95 05/10/22 15:40 73 16 127/94 96 05/10/22 15:30 76 16 160/91 H 97 05/10/22 15:20 77 17 162/112 H 100 05/10/22 15:13 36.2 C L 86 17 171/99 H 94 05/10/22 12:24 80 18 96 05/10/22 11:18 36.8 C 18 L 79 18 146/87 H 96 05/10/22 07:54 36.6 C 65 17 166/95 H 94 05/09/22 22:02 05/09/22 22:02 36.8 C 98 H 18 162/95 H 95 05/09/22 17:00 83 20 154/90 H 93 O2 Del Method O2 Flow Rate 05/10/22 15:50 Room Air 05/10/22 15:40 Room Air 05/10/22 15:30 Oxymask 3 05/10/22 15:20 Oxymask 5 05/10/22 15:13 Oxymask 5 05/10/22 12:24 Room Air 05/10/22 11:18 Room Air 05/10/22 07:54 Room Air 05/09/22 22:02 Room Air 05/09/22 22:02 Room Air 05/09/22 17:00 Pain Intensity Lower Back: Pain Intensity: 0 Transfer of Care Handoff Completed per policy Notes Mental Status: alert / awake / arousable Patient Amnestic to Procedure: Yes Nausea / Vomiting: adequately controlled Pain: adequately controlled Airway Patency, RR, SpO2: stable & adequate BP & HR: stable & adequate Hydration State: stable & adequate Anesthetic Complications: no major complications apparent and Pt Satisfied with anesthetic care Notes: The patient is awake and comfortable.
[2022-05-10] MEDS ORDERED: SOD PHOSPHATE/SOD BIPHOSPHATE ENEMA 132 ML BTL PR PRN (16:12)
[2022-05-10] MEDS ORDERED: diphenhydrAMINE Capsule 25 MG CAP PO PRN (16:12)
[2022-05-10] MEDS ORDERED: DO NOT ADMINISTER FLU VACCINE PRN (16:12)
[2022-05-10] MEDS ORDERED: ACETAMINOPHEN 500 MG TAB PO PRN (16:12)
[2022-05-10] MEDS ORDERED: PROMETHAZINE HCL 12.5 MG in SODIUM CHLORIDE 0.9% 50 ML IV PRN (16:12)
[2022-05-10] MEDS ORDERED: NALOXONE HCL 0.4 MG/1 ML VIAL/CARP IV PRN (16:12)
[2022-05-10] MEDS ORDERED: hydrOXYzine HCl 25 MG TAB PO PRN (16:12)
[2022-05-10] MEDS ORDERED: HYDROmorphone INJ 0.5 MG/0.5 ML SYR IV PRN (16:12)
[2022-05-10] MEDS ORDERED: LORazepam 0.5 MG in SYRINGE 0 ML IV PRN (16:12)
[2022-05-10] MEDS ORDERED: MAGNESIUM HYDROXIDE SUSP 30 ML UDC PO PRN (16:12)
[2022-05-10] MEDS ORDERED: ACETAMINOPHEN 1,000 MG/100 ML VIAL IV PRN (16:12)
[2022-05-10] MEDS ORDERED: ALUMINUM/MAGNESIUM SUSP 30 ML UDC PO PRN (16:12)
[2022-05-10] MEDS ORDERED: ONDANSETRON 4 MG OD TAB PO PRN (16:12)
[2022-05-10] MEDS ORDERED: LORazepam 0.5 MG TAB PO PRN (16:12)
[2022-05-10] MEDS ORDERED: DO NOT ADMINISTER PNEUMOCOCCAL VACCINE PRN (16:12)
[2022-05-10] MEDS ORDERED: FAMOTIDINE 20 MG TAB PO PRN (16:12)
[2022-05-10] MEDS ORDERED: bisacodyL 10 MG SUPP PR PRN (16:12)
[2022-05-10] MEDS ORDERED: METOCLOPRAMIDE HCL INJ 5 MG/ML 2 ML VIAL IV PRN (16:12)
[2022-05-10] MEDS ORDERED: traMADol HCL 50 MG TABLET PO PRN (16:12)
--- NOTE | 2022-05-10 16:25 | Hospitalist Progress Note ---
Date of Service May 10, 2022 Assessment & Plan (1) Lumbar disc herniation with radiculopathy: Plan Severe low back pain Radicular RLE pain Lumbar disc herniation with radiculopathy S/p Lumbar decompression and fusion 05/10/[address] Marrufo Patient presented with progressively worsening lower back pain with numbness in right foot and RLE pain, worsening despite steroid shots. Patient is status post lumbar surgery by Dr. Marrufo on 05/10. PT/OT and DVT prophylaxis per orthospine. Pain management. Monitor H&H and other labs, incentive spirometer. Other chronic medical conditions: HLD, prediabetes --> resume home meds as able. DVT prophylaxis: SCDs for now, await orthospine recommendation. Full code Disposition: PT/OT, likely DC by Saturday. Admission and Anticipated Discharge Date Admission Date: May 09, 2022 Subjective Patient seen and examined at bedside as a follow-up of lower back pain with RLE radicular pain status post lumbar decompression and spinal fusion 05/10/[address] Marrufo. Pt was lying in bed, on RA, NAD, s/p lumbar surgery during the day, reports some soreness at operative site, denies RLE radicular pain at the time, offers no other complaints. Physical Exam Physical Exam: GENERAL: Alert and oriented x3. NAD, on RA. HEENT: No pallor, no icterus. Pupils equal, round and reactive to light. Oral mucosa moist. NECK: No JVD, no neck masses. HEART: S1 and S2 heard. Regular rate and rhythm. No murmur, no gallop. RESPIRATORY SYSTEM: Normal AP diameter. No accessory muscle use. No wheezing, no crackles. ABDOMEN: Soft, bowel sounds present, nontender, no distention. CENTRAL NERVOUS SYSTEM: No facial droop. Speech is clear. Obeys simple commands. Moves extremities. EXTREMITIES: No edema, no erythema seen. Low back w/ dressing c/d/i. BETHEL drain in situ w/ mod serosanguinous collection noted. Results & Data Results & Data ([facility]) Vital Signs (Past 12 Hours) Vital Signs Temp Pulse Pulse Resp BP Pulse Ox O2 Del Method 05/10/22 16:13 36.7 C 82 18 151/88 H 93 Room Air 05/10/22 15:50 36.4 C L 82 16 134/86 95 Room Air 05/10/22 15:40 73 16 127/94 96 Room Air 05/10/22 15:30 76 16 160/91 H 97 Oxymask 05/10/22 15:20 77 17 162/112 H 100 Oxymask 05/10/22 15:13 36.2 C L 86 17 171/99 H 94 Oxymask 05/10/22 12:24 80 18 96 Room Air 05/10/22 11:18 36.8 C 18 L 79 18 146/87 H 96 Room Air 05/10/22 07:54 36.6 C 65 17 166/95 H 94 Room Air O2 Flow Rate 05/10/22 16:13 05/10/22 15:50 05/10/22 15:40 05/10/22 15:30 3 05/10/22 15:20 5 05/10/22 15:13 5 05/10/22 12:24 05/10/22 11:18 05/10/22 07:54
[2022-05-10] MEDS: LACTATED RINGER'S 1,000 ML IV SCH (16:31)
[2022-05-10] MEDS: oxyCODONE HCL IR 5 MG TAB (IMMEDIATE RELEASE) PO PRN (20:06)
[2022-05-10] MEDS: DOCUSATE SODIUM/SENNA 50/8.6MG TAB PO SCH (20:06)
[2022-05-10] MEDS: ceFAZolin 2000MG 2,000 MG/15 ML SYR IV SCH (21:05)
[2022-05-11] MEDS: HYDROmorphone INJ 1 MG/ML SYRINGE IV PRN ×2 (00:42→05:40)
[2022-05-11] MEDS: LACTATED RINGER'S 1,000 ML IV SCH ×2 (02:23→11:14)
[2022-05-11] MEDS: ceFAZolin 2000MG 2,000 MG/15 ML SYR IV SCH (05:27)
[2022-05-11] MEDS: POLYETHYLENE (MIRALAX) 17 GM PACK PO SCH ×4 (05:27→23:45)
[2022-05-11] MEDS: NICOTINE 21 MG/24 HR TDSY TD SCH (07:26)
[2022-05-11] MEDS: ROSUVASTATIN CALCIUM 10 MG TAB PO SCH (07:26)
[2022-05-11] MEDS: dexAMETHasone 6 MG in SYRINGE 0 ML IV SCH (07:26)
[2022-05-11 09:00] LABS: Basophils # (auto) 0.02 K/uL (0-0.2); Basophils % (auto) 0.1 %; Eosinophils # (auto) 0.02 K/uL (0-0.50); Eosinophils % (auto) 0.1 %; Hematocrit (blood only) 40.8 % (40.1-51.0); Hemoglobin 13.3 g/dl (14.0-18.0); Immature Granulocytes % (auto) 0.6 %; Lymphocytes % (auto) 17.6 %; Mean Corpuscular Hemoglobin 30.3 pg (25.0-34.0); Mean Corpuscular Hgb Conc 32.6 g/dL (32.0-36.0); Mean Corpuscular Volume 92.9 fL (80.0-100.0); Mean Platelet Volume 9.4 fL (9.4-12.4); Monocytes # (auto) 1.43 K/uL (0.24-0.82); Monocytes % (auto) 8.1 %; Neutrophils # (auto) 12.93 K/uL (1.4-6.5); Neutrophils % (auto) 73.5 %; Platelet Count 278 K/uL (130-400); RDW Coefficient of Variation 14.1 % (11.5-14.5); RDW Standard Deviation 47.7 fL (36.4-46.3); Red Blood Count 4.39 M/uL (4.63-6.08)
[2022-05-11 09:10] LABS: BUN Creatinine Ratio 17.6 (10-20); Calcium 8.5 mg/dl (8.5-10.1); Creatinine Clr Calc Pharmacy 91.8 ml/min; Est GFR (African American) 108.2 ml/min; Est GFR (Non-African American) 93.4 ml/min; Magnesium 2.1 mg/dl (1.7-2.4); Potassium 3.8 mmol/L (3.5-5.1)
--- NOTE | 2022-05-11 12:33 | Orthopedic Progress Note ---
Date of Service May 11, 2022 Assessment & Plan (1) Lumbar disc herniation with radiculopathy: Plan: This time initiate physical therapy monitor his BETHEL output hopefully discharge home next day or so. Admission and Anticipated Discharge Date Admission Date: May 09, 2022 Subjective Back pain controlled leg pain markedly improved Physical Exam Physical Exam: Patient is in the chair at the bedside. He is comfortable. Is good strength testing. Results & Data ([facility]) Vital Signs (Past 12 Hours) Vital Signs Temp Pulse Resp BP Pulse Ox O2 Del Method 05/11/22 12:18 36.8 C 77 18 155/94 H 93 Room Air 05/11/22 07:39 36.8 C 73 18 137/79 92 Room Air 05/11/22 02:49 36.6 C 72 18 142/74 H 94 Room Air
--- NOTE | 2022-05-11 16:18 | Hospitalist Progress Note ---
Date of Service May 11, 2022 Assessment & Plan (1) Lumbar disc herniation with radiculopathy: Plan Severe low back pain Radicular RLE pain Lumbar disc herniation with radiculopathy S/p Lumbar decompression and fusion 05/10/[address] Marrufo Patient presented with progressively worsening lower back pain with numbness in right foot and RLE pain, worsening despite steroid shots. Patient is status post lumbar surgery by Dr. Marrufo on 05/10. PT/OT and DVT prophylaxis per orthospine. Pain management. Monitor H&H and other labs, incentive spirometer. Other chronic medical conditions: HLD, prediabetes --> resume home meds as able. DVT prophylaxis: SCDs for now, await orthospine recommendation. Full code Disposition: PT/OT, likely DC by Saturday. Admission and Anticipated Discharge Date Admission Date: May 09, 2022 Subjective Patient seen and examined at bedside as a follow-up of lower back pain with RLE radicular pain status post lumbar decompression and spinal fusion 05/10/[address] Marrufo. Pt was walking back from restroom, on RA, NAD, s/p lumbar surgery 05/10, reports some soreness at operative site, denies RLE radicular pain, offers no other complaints. Physical Exam Physical Exam: GENERAL: Alert and oriented x3. NAD, on RA. HEENT: No pallor, no icterus. Pupils equal, round and reactive to light. Oral mucosa moist. NECK: No JVD, no neck masses. HEART: S1 and S2 heard. Regular rate and rhythm. No murmur, no gallop. RESPIRATORY SYSTEM: Normal AP diameter. No accessory muscle use. No wheezing, no crackles. ABDOMEN: Soft, bowel sounds present, nontender, no distention. CENTRAL NERVOUS SYSTEM: No facial droop. Speech is clear. Obeys simple commands. Moves extremities. EXTREMITIES: No edema, no erythema seen. Low back w/ dressing c/d/i. BETHEL drain in situ w/ mod serosanguinous collection noted. Results & Data Results & Data ([facility]) Vital Signs (Past 12 Hours) Vital Signs Temp Pulse Resp BP Pulse Ox O2 Del Method 05/11/22 15:14 37.0 C 97 H 18 147/90 H 91 Room Air 05/11/22 12:18 36.8 C 77 18 155/94 H 93 Room Air 05/11/22 07:39 36.8 C 73 18 137/79 92 Room Air
[2022-05-11] MEDS: oxyCODONE HCL IR 5 MG TAB (IMMEDIATE RELEASE) PO PRN (20:47)
[2022-05-11] MEDS: DOCUSATE SODIUM/SENNA 50/8.6MG TAB PO SCH (20:47)
[2022-05-12] MEDS: oxyCODONE HCL IR 5 MG TAB (IMMEDIATE RELEASE) PO PRN ×3 (05:10→13:19)
[2022-05-12] MEDS: POLYETHYLENE (MIRALAX) 17 GM PACK PO SCH ×2 (05:18→13:18)
[2022-05-12 08:14] LABS: Hematocrit (blood only) 40.9 % (40.1-51.0); Hemoglobin 13.9 g/dl (14.0-18.0); Mean Corpuscular Hemoglobin 31.2 pg (25.0-34.0); Mean Corpuscular Volume 91.9 fL (80.0-100.0); Mean Platelet Volume 9.6 fL (9.4-12.4); Platelet Count 278 K/uL (130-400); RDW Coefficient of Variation 14.1 % (11.5-14.5); RDW Standard Deviation 47.7 fL (36.4-46.3); Red Blood Count 4.45 M/uL (4.63-6.08); White Blood Count 13.75 K/ul (4.8-10.8)
[2022-05-12 08:42] LABS: BUN Creatinine Ratio 20.3 (10-20); Calcium 8.9 mg/dl (8.5-10.1); Creatinine Clr Calc Pharmacy 98.8 ml/min; Est GFR (African American) 111.5 ml/min; Est GFR (Non-African American) 96.2 ml/min; Potassium 3.5 mmol/L (3.5-5.1)
[2022-05-12] MEDS: NICOTINE 21 MG/24 HR TDSY TD SCH ×2 (09:02→09:08)
[2022-05-12] MEDS: dexAMETHasone 6 MG in SYRINGE 0 ML IV SCH (09:02)
[2022-05-12] MEDS: ROSUVASTATIN CALCIUM 10 MG TAB PO SCH (09:02)
--- NOTE | 2022-05-12 10:50 | Discharge Summary ---
Date of Service May 12, 2022 Principal Diagnosis Lumbar disc herniation with radiculopathy Discharge Data Allergies Allergy/AdvReac Type Severity Reaction Status Date / Time atorvastatin [From Lipitor] AdvReac Intermediate MUSCLE Verified 05/09/22 16:41 CRAMPS Consultations 05/09/22 19:00 ED Decision to Admit Stat 05/09/22 21:50 Consult Orthopedic Surgery Routine Procedures Performed Operation Date: 05/10/22 11:25 Actual Procedures p L4-L5 Lumbar Decompression and Fusion - Sylvain Marrufo DO Ordered Studies 05/09/22 13:22 MRI Lumbar Spine [MR lumbar spine wo con] Stat 05/10/22 [place] lumbar spine 2-3V Routine Hospital Course (1) Lumbar disc herniation with radiculopathy: Patient was admitted with a severe radiculopathy inability ambulate. The following morning he was cleared for surgery and underwent decompression fusion. He tolerated this well. Postop day 1 he was up and ambulating progressed to postop day 2. BETHEL drain decreasing appropriate. Excellent strength testing. Separately discharged home. Discharge orders instructions from the chart for further review. Total Time Total Time Spent Total Time Spent (In Minutes): 20 minutes Discharge Plan Discharge Items Patient Disposition: Home - Self-Care Reason For Visit: BACK PAIN Discharge Diagnosis: Lumbar disc herniation with radiculopathy Activity: As commented below Non-emergency contact: Primary Care Provider Call non-emergency contact if: you have any medication questions Follow-up/Referrals: Paulina Molina DO [Primary Care Provider] - Diet: Regular Addtl Attending Provider Instructions: ACTIVITY RECOMMENDATIONS: SELF CARE INSTRUCTIONS AFTER THORACIC/LUMBAR FUSIONS 1. You may walk to your tolerance. It is good exercise for your legs and back. Expect some back and intermittent leg aches and pains. 2. You may perform "counter-top" level activities (make a sandwich, salvador with a project, etc.). 3. No bending or lifting of more than 10 pounds or back twisting of any nature (roll like a log when turning in bed). 4. You may ride in a car for 20-30 minutes at a time. No driving until after your first visit with your doctor. 5. Frequent changes of position and restricting sitting to 30 minutes at a time will help limit the amount of back spasms and stiffness you may experience. 6. You may discontinue the use of ambulatory aids (cane, crutches, etc.) once your strength and confidence allow. 7. You may inspector heating and refrigeration the shower and let water strike your incision when you arrive home at least once daily. Do not take a tub bath, sit in a hot tub or go into a swimming pool until after your first recheck in the office. SPECIAL CARE INSTRUCTIONS: VERY IMPORTANT TO READ AND REVIEW A. Your surgical incision has been closed with a cosmetic suture under the skin that will dissolve in about 6 weeks. In 14 days, you can use a pair of clean scissors and cut the suture that is left outside of the skin at the ends of your incision. 1. The small skin tapes can be removed 7 days after surgery if they have not fallen off by that point. 2. You may keep the wound open to air as much as possible to promote healing after post-op day number 5 unless told otherwise by your doctor. 3. If you think the wound looks like it is becoming infected (redness or worsening drainage) and/or you are experiencing fever, chill or worsening back pain and muscle spasms, contact the office so that we may evaluate you as soon as possible. B. Complications are uncommon, but please contact us if you have any signs or symptoms of: 1. wound infection (fever higher than 102.5 degrees F, redness, separation of wound, drainage, or increasing pain from the incision) 2. blood clots in legs (pain, swelling, redness and warmth in legs) 3. urinary tract infection (fever higher than 102.5 degrees F, burning upon urination or increased frequency of urination) 4. nerve problems (inability to walk on your toes or heels, numbness, loss of bowel or bladder control) 5. any other symptoms that concern you C. Please call the office at if you have any concerns or questions about your operation or recovery. D. No smoking! Smoking drastically decreases the chance of a solid fusion. E. Do not take any anti-inflammatory medications (Indocin, Advil, Motrin, Aspirin, Naprosyn, etc.) as these may inhibit the chance of a solid fusion. Tylenol is okay to take for pain. MANAGING PAIN AFTER SPINAL SURGERY 1. Narcotic medication is intended for short-term use and will be provided for surgical pain. Surgical pain usually lasts for a period of 4-6 weeks. Narcotic medication includes Percocet, Vicodin, Darvocet, Tylenol #3 or Lortab. 2. Longer-term pain is more appropriately treated with non-narcotic medication such as Tylenol ES. 3. Muscle spasm is not appropriately treated with narcotics. Muscle relaxers such as Soma, Flexeril or Skelaxin can be used along with Tylenol ES. 4. Remember that we all live with some "aches and pains". This is not unusual or uncommon after an injury or as we get older. a. Back pain is expected and may include muscle spasms for 4 to 6 weeks after surgery. The pain should gradually improve. If the pain worsens for no apparent reason, please contact the office. b. Intermittent leg pain may also be experienced and should not be concerned about unless it worsens for no apparent reason. If so, please contact the office. 5. We will provide appropriate medication within the normal guidelines of their prescribed use. We will also be very cautious and aware of potential abuse and extended duration of patients' medication needs. a. Pain medications are for your comfort and to assist with sleep and rest so that the tissue can heal. They are not provided in order to return to normal activity and should not be used through the day. To do so or worsening pain at night can result from ongoing tissue damage and development of tolerance to the prescribed medicine. 6. Please allow 2-3 days to process refills. Prescriptions will not be mailed but must be picked up at the office. FOLLOW UP VISIT: Keep your scheduled follow-up appointment. Any questions, please call the office at . Pending Studies at Discharge: No Stand-Alone Forms: [facility] FullContact, Smoking Cessation Medications and DC Order Prescriptions: New tramadol 50 mg tablet 50 mg PO Q6H PRN (Reason: pain, moderate) Qty: 30 0RF oxycodone 5 mg tablet 5 mg PO Q6H PRN (Reason: pain, severe) Qty: 30 0RF Continued tramadol 50 mg tablet 50 mg PO DIRECTED PRN (Reason: Pain) methylprednisolone 4 mg tablets,dose pack 0 mg PO DAILY Rx Instructions: STARTED 05/03/22 FOR 6 DAYS, TAKE DIRECTED ON PKG. rosuvastatin 10 mg tablet 10 mg PO DAILY Discharge Orders: Discharge Order (Routine); Ordered 05/12/22 Ordered By: Sylvain Rosa/Other Patient Handouts: Prediabetes, 5 Steps for Eating Healthier Admission Data Admit Date/Time: 05/09/22 20:12 Attending Provider: Marion Cotton Admit Provider: Isidoro Araujo Primary Care Provider: Paulina Molina Other Providers: Isidoro Araujo ; Sylvain Marrufo
--- NOTE | 2022-05-12 11:54 | Hospitalist Progress Note ---
Date of Service May 12, 2022 Assessment & Plan (1) Lumbar disc herniation with radiculopathy: Plan Severe low back pain Radicular RLE pain Lumbar disc herniation with radiculopathy S/p Lumbar decompression and fusion 05/10/[address] Marrufo Patient presented with progressively worsening lower back pain with numbness in right foot and RLE pain, worsening despite steroid shots. Patient is status post lumbar surgery by Dr. Marrufo on 05/10. PT/OT and DVT prophylaxis per orthospine. Pain management. Monitor H&H and other labs, incentive spirometer. Other chronic medical conditions: HLD, prediabetes --> resume home meds as able. DVT prophylaxis: SCDs for now, per orthospine recommendation. Full code Disposition: PT/OT, DC today. Admission and Anticipated Discharge Date Admission Date: May 09, 2022 Subjective Patient seen and examined at bedside as a follow-up of lower back pain with RLE radicular pain status post lumbar decompression and spinal fusion 05/10/[address] Marrufo. Pt was sitting up in chair, on RA, NAD, s/p lumbar surgery 05/10, reports improving soreness at operative site, denies RLE radicular pain, offers no other complaints. Physical Exam Physical Exam: GENERAL: Alert and oriented x3. NAD, on RA. HEENT: No pallor, no icterus. Pupils equal, round and reactive to light. Oral mucosa moist. NECK: No JVD, no neck masses. HEART: S1 and S2 heard. Regular rate and rhythm. No murmur, no gallop. RESPIRATORY SYSTEM: Normal AP diameter. No accessory muscle use. No wheezing, no crackles. ABDOMEN: Soft, bowel sounds present, nontender, no distention. CENTRAL NERVOUS SYSTEM: No facial droop. Speech is clear. Obeys simple commands. Moves extremities. EXTREMITIES: No edema, no erythema seen. Low back w/ dressing c/d/i. BETHEL drain in situ w/ minimal serosanguinous collection noted. Results & Data Results & Data ([facility]) Vital Signs (Past 12 Hours) Vital Signs Temp Pulse Pulse Resp BP Pulse Ox O2 Del Method 05/12/22 07:25 36.8 C 91 H 137/90 93 Room Air 05/12/22 03:18 36.6 C 71 16 139/86 96 Room Air
== END 2022-05-12 14:20 | disposition home or self-care (01) | DRG 455 ==
LOC: ED 12:08 → 3N 20:12